=== PATIENT | male | born 1955 | race Caucasian/White ===

== ENCOUNTER 2016-06-05 10:34 | Day surgery (SDC) | payer BC ==
[~2016-06-05] VITALS: Ht 175.3 cm; Wt 95.0 kg
[2016-06-05 10:38] VITALS: BP 167/94; PULSE 77; RESP 17; TEMP 97.9; O2SAT 95
[2016-06-05] MEDS ORDERED: TETANUS/DIPHTHERIA TOXOID ADULT 0.5 ML VIAL IM ONE (11:00)
--- NOTE | 2016-06-05 11:07 | PD ---
HPI Chief Complaint: Fall Time Seen by Provider: 11:06 Travel History International Travel<30 days: No Contact w/Intl Traveler<30days: No Traveled to known affect area: No History of Present Illness HPI 61-year-old male presents to the emergency department for evaluation of fall that occurred just prior to arrival. 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 He states he landed on his head, left side and caught himself with his right wrist. Patient complains of headache, bilateral shoulder pain, right wrist pain. He denies loss of consciousness. He states his tetanus immunization is not up-to-date. He denies any chest pain or abdominal pain. No vomiting. He has been ambulatory since the fall. He states he has no chronic medical problems and takes no prescribed medications. He is not on anticoagulants and has no bleeding disorders. PFSH Past Surgical History Abdominal Surgery: Yes (herniorrhaphy) Social History Alcohol Use: Yes ("few beers per week") Tobacco Use: No Substance Use: No Allergies-Medications (Allergen,Severity, Reaction): Coded Allergies: No Known Allergies (Unverified , 06/05/16) Reported Meds & Prescriptions Reported Meds & Active Scripts Active No Active Prescriptions or Reported Medications Review of Systems Except as stated in HPI: all other systems reviewed are Neg Physical Exam Narrative GENERAL: Well-developed well-nourished male patient, ambulatory. Afebrile. SKIN: Warm and dry. Patient abrasions to the left forehead, left lower eye orbit and left cheek. He also has a superficial abrasion to the left anterior knee. Patient has a 4 cm laceration to the left forehead. HEAD: Normocephalic. EYES: No scleral icterus. No injection or drainage. PERRLA. ENT: Mucosa pink and moist. No erythema or exudates. No uvular edema. No uvular , palatal, or tonsillar deviation. Airway patent. Nasal turbinates appear normal without nasal blood, purulent drainage or septal hematoma. Bilateral tympanic membranes are clear without erythema or perforation. NECK: Supple, trachea midline. No JVD or lymphadenopathy. CARDIOVASCULAR: Regular rate and rhythm without murmurs, gallops, or rubs. Bilateral radial pulses are 2+. Capillary refill less than 2 seconds to the bilateral hands. RESPIRATORY: Breath sounds equal bilaterally. No accessory muscle use. Lungs sounds are clear to auscultation. GASTROINTESTINAL: Abdomen soft, non-tender, nondistended. MUSCULOSKELETAL: No cyanosis, or edema. Patient has tenderness over the right and left shoulders. Patient has Reduced range of motion right shoulder. He also has tenderness over the right dorsal and lateral wrist. No snuffbox tenderness. Full sensation distal right and left upper extremities. No other bony point tenderness. BACK: Nontender without obvious deformity. No CVA tenderness. Data Data Last Documented VS Vital Signs Date Time Temp Pulse Resp B/P Pulse Ox O2 Delivery O2 Flow Rate FiO2 06/05/16 14:40 69 16 122/77 96 Room Air 06/05/16 10:38 97.9 Orders Morphine Inj (Morphine Inj) (06/05/16 11:15) Ct Brain W/O Iv Contrast(Rout) (06/05/16 ) Ct Facial Bones W/O Iv Cont (06/05/16 ) Ct Cerv Spine W/O Contrast (06/05/16 ) Chest, Single Ap (06/05/16 ) Shoulder, Complete (>2vws) (06/05/16 ) Shoulder, Complete (>2vws) (06/05/16 ) Wrist, Complete (Utc2ibs) (06/05/16 ) Apply Cervical Collar (06/05/16 11:00) Tetanus/Diphtheria Tox Adult (Tetanus/Di (06/05/16 11:00) Iv Access Insert/Monitor (06/05/16 11:03) Ondansetron Inj (Zofran Inj) (06/05/16 11:15) Lidocai-Epi 1%-1:100,000 Inj (Xylocaine- (06/05/16 11:15) Splint Or Brace Apply/Monitor (06/05/16 12:38) Oxycodone-Acetamin 5-325 Mg (Percocet (06/05/16 12:45) Fiberglass Sugartong Sp Ad Arm (06/05/16 ) Sling Cradle Arm (06/05/16 ) Collar Glynn (06/05/16 ) Ct Wrist W/O Contrast (06/05/16 ) Diet Npo (06/05/16 Dinner) Basic Metabolic Panel (Bmp) (06/05/16 14:46) Complete Blood Count With Diff (06/05/16 14:46) Prothrombin Time / Inr (Pt) (06/05/16 14:46) Act Partial Throm Time (Ptt) (06/05/16 14:46) Electrocardiogram (06/05/16 ) Admit Order (Ed Use Only) (06/05/16 16:19) Labs Laboratory Tests Test 06/05/16 14:55 White Blood Count 11.6 TH/MM3 Red Blood Count 5.25 MIL/MM3 Hemoglobin 15.5 GM/DL Hematocrit 44.7 % Mean Corpuscular Volume 85.1 FL Mean Corpuscular Hemoglobin 29.5 PG Mean Corpuscular Hemoglobin 34.6 % Concent Red Cell Distribution Width 13.3 % Platelet Count 175 TH/MM3 Mean Platelet Volume 9.4 FL Neutrophils (%) (Auto) 82.0 % Lymphocytes (%) (Auto) 10.2 % Monocytes (%) (Auto) 6.6 % Eosinophils (%) (Auto) 0.7 % Basophils (%) (Auto) 0.5 % Neutrophils # (Auto) 9.5 TH/MM3 Lymphocytes # (Auto) 1.2 TH/MM3 Monocytes # (Auto) 0.8 TH/MM3 Eosinophils # (Auto) 0.1 TH/MM3 Basophils # (Auto) 0.1 TH/MM3 CBC Comment DIFF FINAL Differential Comment Prothrombin Time 11.5 SEC Prothromb Time International 1.0 RATIO Ratio Activated Partial 27.5 SEC Thromboplast Time Sodium Level 140 MEQ/L Potassium Level 4.5 MEQ/L Chloride Level 108 MEQ/L Carbon Dioxide Level 24.6 MEQ/L Anion Gap 7 MEQ/L Blood Urea Nitrogen 13 MG/DL Creatinine 1.12 MG/DL Estimat Glomerular Filtration 67 ML/MIN Rate Random Glucose 98 MG/DL Calcium Level 8.7 MG/DL MDM Medical Decision Making Medical Screen Exam Complete: Yes Emergency Medical Condition: Yes Medical Record Reviewed: Yes Interpretation(s) Last Impressions Wrist X-Ray 06/05/16 0000 Signed Impressions: Service Date/Time: Sunday, June 05, 2016 11:22 - CONCLUSION: Fracture distal radius Jose Abel MD Shoulder X-Ray 06/05/16 0000 Signed Impressions: Service Date/Time: Sunday, June 05, 2016 11:27 - CONCLUSION: No acute bony injury Jose Abel MD Shoulder X-Ray 06/05/16 0000 Signed Impressions: Service Date/Time: Sunday, June 05, 2016 11:37 - CONCLUSION: Negative for fracture or dislocation. Followup in 7-10 days is suggested if symptoms persist. Vinh Velasquez MD FACR Maxillofacial CT 06/05/16 0000 Signed Impressions: Service Date/Time: Sunday, June 05, 2016 11:50 - CONCLUSION: No acute bony injury. Left frontal for head soft tissue swelling and air in soft tissues consistent with laceration abrasion Jose Abel MD Head CT 06/05/16 0000 Signed Impressions: Service Date/Time: Sunday, June 05, 2016 11:50 - CONCLUSION: Normal examination. Jose Abel MD Chest X-Ray 06/05/16 0000 Signed Impressions: Service Date/Time: Sunday, June 05, 2016 11:19 - CONCLUSION: No acute disease. Jose Abel MD Cervical Spine CT 06/05/16 Signed Impressions: Service Date/Time: Sunday, June 05, 2016 11:50 - CONCLUSION: Degenerative changes. No acute bony injury. Jose Abel MD Differential Diagnosis Intracranial abnormality versus closed head injury versus fracture versus contusion versus laceration versus abrasion versus dislocation Narrative Course 61-year-old male presents to the emergency department for evaluation after approximately a 7 foot fall that occurred just prior to arrival. Tetanus immunization is updated. C-collar is applied. CT scan of the brain, facial bones, cervical spine are ordered and pending. X-ray of the right shoulder, left shoulder, chest, right wrist are ordered and pending. Patient gives verbal consent for laceration repair. CT of the brain is normal. CT of the facial bones shows no acute bony injury. CT of the cervical spine shows degenerative changes without acute bony injury. X-ray of the right shoulder shows no acute bony. X-ray of the left shoulder shows no acute bony injury. X-ray of the chest shows no acute. X-ray of the right wrist shows a distal radius fracture. [phone] - orthopedist technical support professional is paged. [phone] - Dr. Varela returned page. CT scan of the wrist. He would like to be called back when CT was resulted. He would like the patient remain nothing by mouth after midnight at this time. CT wrist shows a comminuted T-shaped fracture which is intra-articular extension of the distal radius without significant displacement of the fracture fragments. There is benign well corticated cyst adjacent to the radial tuberosity measuring 10 mm x 5 mm. The carpal bones appear intact. Scapholunate distance is maintained. The ulnar styloid is intact. [phone] - Dr. Varela is paged. [phone] - Dr. Varela returned page it would like to take the patient to the OR today and discharged after the surgery. The patient agrees to this. Procedures Procedure Narrative LACERATION LOCATION: Forehead LENGTH: 4 cm NUMBER OF STITCHES/RODRIGUEZ: 9 simple interrupted sutures REPAIR: The area of the laceration was prepped with Betadine and sterilely draped. The laceration was infiltrated with 1% lidocaine with epinephrine. The wound was copiously irrigated and explored without evidence of foreign body, tendon injury or neurovascular injury. The wound was closed using 5-0 Prolene. This was a single layer repair. A sterile dressing was applied. The patient was advised to keep the dressing clean and dry. Patient tolerated the procedure well. Repair was done by GUSTAVO Lloyd student. Diagnosis Primary Impression: Distal radius fracture, right Qualified Code: S52.571A - Other closed intra-articular fracture of distal end of right radius, initial encounter Additional Impression: Laceration of forehead Qualified Code: S01.81XA - Laceration of forehead, initial encounter Admitting Information Admitting Physician Requests: Observation Scripts No Active Prescriptions or Reported Meds Kelly Moncada Jun 05, 2016 11:06
[2016-06-05] MEDS ORDERED: MORPHINE SULFATE 4 MG/ML INJ IV PUSH ONE ×2 (11:15→19:15)
[2016-06-05] MEDS ORDERED: LIDOCAINE 1%/EPINEPHrine 1:100,000 SOLN 20 ML VIAL INFIL ONE (11:15)
[2016-06-05] MEDS ORDERED: ONDANSETRON HCL 4 MG/2 ML VIAL IV PUSH ONE ×2 (11:15→12:00)
--- NOTE | 2016-06-05 11:56 | RADRPT ---
EXAM DATE/TIME: 06/05/2016 11:27 [facility] COMPARISON: No previous studies available for comparison. INDICATIONS : Fell off truck today, bilateral shoulder pain MEDICAL HISTORY : None. SURGICAL HISTORY : None. ENCOUNTER: Initial ACUITY: 1 day PAIN SCORE: 8/10 LOCATION: Right shoulder FINDINGS: Multiple view examination of the right shoulder demonstrates no evidence of fracture or dislocation. The glenohumeral and acromioclavicular joints are maintained. There is normal range of motion betwe en internal and external rotation. Bony mineralization is normal. Mild degenerative change of the a. c. joint CONCLUSION: No acute bony injury Jose Abel MD on June 05, 2016 at 11:54 Board Certified Radiologist. This report was verified electronically.
--- NOTE | 2016-06-05 11:57 | RADRPT ---
EXAM DATE/TIME: 06/05/2016 11:22 [facility] COMPARISON: No previous studies available for comparison. INDICATIONS : Fell off truck today, pain 360 degrees around right wrist MEDICAL HISTORY : None. SURGICAL HISTORY : None. ENCOUNTER: Initial ACUITY: 1 day PAIN SCORE: 5/10 LOCATION: Right wrist FINDINGS: Fracture of distal radius is appreciated in part transverse 1 cm proximal epiphysis with a vertical c omponent into the articular surface. Ulna is intact with no dislocation. CONCLUSION: Fracture distal radius Jose Abel MD on June 05, 2016 at 11:55 Board Certified Radiologist. This report was verified electronically.
--- NOTE | 2016-06-05 11:58 | RADRPT ---
EXAM DATE/TIME: 06/05/2016 11:37 [facility] COMPARISON: No previous studies available for comparison. INDICATIONS : Fell off truck today, bilateral shoulder pain MEDICAL HISTORY : None. SURGICAL HISTORY : None. ENCOUNTER: Initial ACUITY: 1 day PAIN SCORE: 8/10 LOCATION: Left shoulder FINDINGS: Multiple view examination of the left shoulder demonstrates no evidence of fracture or dislocation. The glenohumeral and acromioclavicular joints are maintained. There is normal range of motion betwee n internal and external rotation. Bony mineralization is normal. CONCLUSION: Negative for fracture or dislocation. Followup in 7-10 days is suggested if symptoms persist. Vinh Velasquez MD FACR on June 05, 2016 at 11:56 Board Certified Radiologist. This report was verified electronically.
--- NOTE | 2016-06-05 11:58 | RADRPT ---
EXAM DATE/TIME: 06/05/2016 11:19 [facility] COMPARISON: CHEST SINGLE AP, January 22, 2015, 15:46. INDICATIONS : Fell off truck today, pain in chest, both shoulders and right wrist MEDICAL HISTORY : None. SURGICAL HISTORY : None. ENCOUNTER: Initial ACUITY: 1 day PAIN SCORE: 5/10 LOCATION: Left chest FINDINGS: A single view of the chest demonstrates the lungs to be symmetrically aerated without evidence of mas s, infiltrate or effusion. The cardiomediastinal contours are unremarkable. Osseous structures are intact. CONCLUSION: No acute disease. Jose Abel MD on June 05, 2016 at 11:56 Board Certified Radiologist. This report was verified electronically.
[2016-06-05] MEDS ORDERED: PROPOFOL 200 MG/20 ML AMP IV ONE (12:00)
[2016-06-05] MEDS ORDERED: LACTATED RINGER'S 1000 ML INJ 1,000 ML IV ONE (12:00)
--- NOTE | 2016-06-05 12:12 | RADRPT ---
EXAM DATE/TIME: 06/05/2016 11:50 [facility] COMPARISON: No previous studies available for comparison. INDICATIONS : Fall onto pavement today, abrasion to left side of head, cephalgia. RADIATION DOSE: 53.25 CTDIvol (mGy) MEDICAL HISTORY : None SURGICAL HISTORY : None. ENCOUNTER: Initial ACUITY: 1 day PAIN SCALE: 7/10 LOCATION: Bilateral head TECHNIQUE: Multiple contiguous axial images were obtained of the head. Using automated exposure control and adj ustment of the mA and/or kV according to patient size, radiation dose was kept as low as reasonably a chievable to obtain optimal diagnostic quality images. FINDINGS: CEREBRUM: The ventricles are normal for age. No evidence of midline shift, mass lesion, hemorrhage or acute in farction. No extra-axial fluid collections are seen. POSTERIOR FOSSA: The cerebellum and brainstem are intact. The 4th ventricle is midline. The cerebellopontine angle i s unremarkable. EXTRACRANIAL: The visualized portion of the orbits is intact. SKULL: The calvaria is intact. No evidence of skull fracture. CONCLUSION: Normal examination. Jose Abel MD on June 05, 2016 at 12:10 Board Certified Radiologist. This report was verified electronically.
--- NOTE | 2016-06-05 12:17 | RADRPT ---
EXAM DATE/TIME: 06/05/2016 11:50 [facility] COMPARISON: No previous studies available for comparison. INDICATIONS : Fall onto pavement today, abrasion to left side of head, cephalgia RADIATION DOSE: 40.21 CTDIvol (mGy) MEDICAL HISTORY : None SURGICAL HISTORY : None. ENCOUNTER: Initial ACUITY: 1 day PAIN SCALE: 2/10 LOCATION: Left neck TECHNIQUE: Volumetric scanning of the cervical spine was performed. Multiplanar reconstructions in the sagittal, coronal and oblique axial planes were performed. Using automated exposure control and adjustment o f the mA and/or kV according to patient size, radiation dose was kept as low as reasonably achievable to obtain optimal diagnostic quality images. FINDINGS: Bony structures are intact with no evidence of fracture, compression, subluxation, or destructive adryan nge. Odontoid is in normal relationship the arch of C1 with open and patent foramen and normal upper thoracic spine. Degenerative disc disease is appreciated C3-C7 with posterior osteophyte disc complex es at C5-6 and C6-7 mildly simply encroaching upon the canal and the inferior neural foramina. CONCLUSION: Degenerative changes. No acute bony injury. Jose Abel MD on June 05, 2016 at 12:13 Board Certified Radiologist. This report was verified electronically.
--- NOTE | 2016-06-05 12:19 | RADRPT ---
EXAM DATE/TIME: 06/05/2016 11:50 [facility] COMPARISON: No previous studies available for comparison. INDICATIONS : Fall onto pavement today, abrasion to left side of head, cephalgia. RADIATION DOSE: 56.76 CTDIvol (mGy) MEDICAL HISTORY : None SURGICAL HISTORY : None. ENCOUNTER: Initial ACUITY: 1 day PAIN SCORE: 7/10 LOCATION: Left head TECHNIQUE: Volumetric scanning of the facial bones was performed. Using automated exposure control and adjustme nt of the mA and/or kV according to patient size, radiation dose was kept as low as reasonably achiev able to obtain optimal diagnostic quality images. FINDINGS: ORBITS: The orbital and infraorbital osseous structures are intact. The retroconal structures have a normal configuration. No radiopaque foreign bodies are seen. NASAL BONE: The nasal bone and maxillary spine are intact ZYGOMATIC ARCHES: Symmetric without evidence of fracture. SINUSES: The maxillary, ethmoid and frontal sinuses are intact. No air-fluid levels seen. NASAL CAVITY: The nasal septum is mildly deviated to the right. The lacrimal ducts are intact. SOFT TISSUES: No radiopaque foreign bodies seen. Mild soft tissue swelling in the left frontal for head region with small amount of air in soft tissues consistent with laceration abrasion INTRACRANIAL: No intracranial air seen. CRIBIFORM PLATE: Grossly intact. CONCLUSION: No acute bony injury. Left frontal for head soft tissue swelling and air in soft tissues consistent w ith laceration abrasion Jose Abel MD on June 05, 2016 at 12:16 Board Certified Radiologist. This report was verified electronically.
--- NOTE | 2016-06-05 12:44 | PD ---
Data Data Last Documented VS Vital Signs Date Time Temp Pulse Resp B/P Pulse Ox O2 Delivery O2 Flow Rate FiO2 06/05/16 11:00 18 Room Air 06/05/16 10:38 97.9 77 167/94 95 Orders Morphine Inj (Morphine Inj) (06/05/16 11:15) Ct Brain W/O Iv Contrast(Rout) (06/05/16 ) Ct Facial Bones W/O Iv Cont (06/05/16 ) Ct Cerv Spine W/O Contrast (06/05/16 ) Chest, Single Ap (06/05/16 ) Shoulder, Complete (>2vws) (06/05/16 ) Shoulder, Complete (>2vws) (06/05/16 ) Wrist, Complete ([id number]) (06/05/16 ) Apply Cervical Collar (06/05/16 11:00) Tetanus/Diphtheria Tox Adult (Tetanus/Di (06/05/16 11:00) Iv Access Insert/Monitor (06/05/16 11:03) Ondansetron Inj (Zofran Inj) (06/05/16 11:15) Lidocai-Epi 1%-1:100,000 Inj (Xylocaine- (06/05/16 11:15) Splint Or Brace Apply/Monitor (06/05/16 12:38) MDM Supervised Visit with JENNIFER: Yes Narrative Course I, Dr. Hubbard, have reviewed the advance practice practioner's documentation and am in agreement, met with the patient face to face, made the diagnosis, and the medical decision making was done by me. 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 Hit the left side of his head and right wrist. No LOC. Patient notes a mild headache, right wrist pain and bilateral shoulder pain from bracing himself. No neck or back pain. Exam shows a left periorbital ecchymosis, laceration to the left forehead/eyebrow. Patient has swelling of the distal wrist. Otherwise his exam is unremarkable with normal neuro exam, no neck or back pain. Differential includes closed head injury, skull fracture, ICH, shoulder fracture, dislocation, clavicular fracture, wrist fracture, facial bone fracture. Thankfully imaging of his head , face, neck were unremarkable. Bilateral shoulder x-rays were negative. His right wrist x-ray does show a distal radius fracture with intra-articular involvement. Patient was placed in sugar tong splint and orthopedic surgery will be consulted for further management for hopeful disposition home. Scripts No Active Prescriptions or Reported Meds Neela Hubbard MD Jun 05, 2016 12:44
[2016-06-05] MEDS ORDERED: oxyCODONE/ACETAMINOPHEN 5 MG/325 MG TAB PO ONE (12:45)
[2016-06-05 14:40] VITALS: BP 122/77; PULSE 69; RESP 16; O2SAT 96
[2016-06-05 15:13] LABS: AUTOMATED NEUTROPHIL # 9.5 TH/MM3 (1.8-7.7); BASOPHIL # 0.1 TH/MM3 (0-0.2); BASOPHIL % 0.5 % (0.0-2.0); EOSINOPHIL # 0.1 TH/MM3 (0-0.4); EOSINOPHIL % 0.7 % (0.0-4.0); HEMATOCRIT 44.7 % (39.0-51.0); HEMO FLAGS DIFF FINAL; LYMPH % 10.2 % (9.0-44.0); LYMPHOCYTE # 1.2 TH/MM3 (1.0-4.8); MEAN CELL VOLUME 85.1 FL (80.0-100.0); MEAN CORPUSCULAR HEMOGLOBIN 29.5 PG (27.0-34.0); MEAN CORPUSCULAR HGB CONC 34.6 % (32.0-36.0); MONO % 6.6 % (0.0-8.0); PLATELET COUNT 175 TH/MM3 (150-450); RED BLOOD COUNT 5.25 MIL/MM3 (4.50-5.90); RED CELL DISTRIBUTION WIDTH 13.3 % (11.6-17.2); WHITE BLOOD COUNT 11.6 TH/MM3 (4.0-11.0)
[2016-06-05 15:19] LABS: APTT (PATIENT) 27.5 SEC (24.3-30.1); PROTHROMBIN TIME - PATIENT 11.5 SEC (9.8-11.6)
[2016-06-05 15:29] LABS: BICARBONATE 24.6 MEQ/L (21.0-32.0); POTASSIUM 4.5 MEQ/L (3.5-5.1)
--- NOTE | 2016-06-05 15:35 | RADRPT ---
EXAM DATE/TIME: 06/05/2016 15:06 [facility] COMPARISON: WRIST RIGHT COMPLETE ([id number]), June 05, 2016, 11:22. INDICATIONS : Trauma;wrist pain, fall six feet. RADIATION DOSE: 12.10 CTDIvol (mGy) MEDICAL HISTORY : None SURGICAL HISTORY : None. ENCOUNTER: Initial ACUITY: 1 day PAIN SCALE: 5/10 LOCATION: Right wrist. TECHNIQUE: Volumetric scanning of the wrist was performed. Using automated exposure control and adjustment of t he mA and/or kV according to patient size, radiation dose was kept as low as reasonably achievable to obtain optimal diagnostic quality images. FINDINGS: There is a comminuted T-shaped fracture which is intra-articular extension of the distal radius witho ut significant displacement of the fracture fragments. There is benign well corticated cyst adjacent to the radial tuberosity measuring 10 mm x 5 mm. The carpal bones appear intact. Scapholunate distanc e is maintained. The ulnar styloid is intact. CONCLUSION: 1. Comminuted intra-articular fracture distal radius. Zechariah Gomez MD on June 05, 2016 at 15:31 Board Certified Radiologist. This report was verified electronically.
[2016-06-05] MEDS ORDERED: ceFAZolin 2 GM PREMIX 50 ML IV SCH (17:30)
[2016-06-05] MEDS ORDERED: CHLORHEXIDINE GLUCONATE 4% SOLN 120 ML BTL TOPICAL SCH (17:30)
[2016-06-05 19:36] VITALS: BP 135/81; PULSE 65; RESP 16; O2SAT 98
[2016-06-05] MEDS ORDERED: GENTAMICIN SULFATE 80 MG/2 ML VIAL ONE (20:33)
[2016-06-05] MEDS ORDERED: fentaNYL CITRATE 250 MCG/5 ML AMP ONE ×2 (20:47→22:48)
[2016-06-05] MEDS ORDERED: MIDAZOLAM HCL 2 MG/2 ML VIAL ONE (20:47)
[2016-06-05] MEDS ORDERED: BUPIVACAINE/EPINEPHRINE 0.25% PF 30 ML VIAL ONE (22:05)
[2016-06-05] MEDS ORDERED: DO NOT ADM ANY ANTICOAGULANT DRUGS XX PRN (22:12)
[2016-06-05 22:40] VITALS: TEMP 98.5
[2016-06-05] MEDS ORDERED: MEPERIDINE HCL 25 MG/ML VIAL ONE (22:53)
--- NOTE | 2016-06-05 22:57 | RADRPT ---
EXAM DATE/TIME: 06/05/2016 21:27 [facility] COMPARISON: WRIST RIGHT COMPLETE ([id number]), June 05, 2016, 11:22. INDICATIONS : ORIF right wrist. MEDICAL HISTORY : None. SURGICAL HISTORY : None. ENCOUNTER: Initial ACUITY: 1 day PAIN SCORE: Non-responsive. LOCATION: Right wrist FINDINGS: Multiple spot films reveal plate and screw fixation of an intra-articular fracture of the distal radi us. No dislocation. No other fractures are seen. CONCLUSION: 1. Plate and screw fixation of distal radius fracture. Gregg You MD on June 05, 2016 at 22:54 Board Certified Radiologist. This report was verified electronically.
[2016-06-05 23:45] VITALS: BP 135/8; PULSE 63; RESP 16; O2SAT 98
[2016-06-05] MEDS ORDERED: PERC5TAB12 PO (23:47)
--- NOTE | 2016-06-06 00:11 | PD.OP ---
Operative Report Date of Surgery: Jun 05, 2016 Preoperative Diagnosis: (1) Distal radius fracture, right Postoperative Diagnosis: (1) Distal radius fracture, right Procedure: Open Reduction and Internal Fixation Right Distal Radius Fracture Anesthesia: General Surgeon: Dr. Alcides Varela Mold Closer Helper(s): KISHORE Harris Operation and Findings: See Dictation Jayden Cobos Jun 06, 2016 00:11
--- NOTE | 2016-06-06 05:36 | MH ---
cc: HAMILTON VASQUEZ M.D. DATE OF ADMISSION: 06/05/2016 ADMISSION DIAGNOSIS Intraarticular right distal radius displaced fracture. 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 He fell while climbing down about 6 or 7 feet. He had blocked his fall with his right upper extremity, had immediate pain in the wrist and had sustained a significant abrasion and laceration to his left forehead/eyebrow. He was brought to [facility] and underwent suture repair of his facial laceration. Workup revealed intraarticular fracture on the right wrist. Consultation was requested with the undersigned. Images reviewed. Recommended CT scan. Other x-rays included CT of the cervical spine, chest x-ray, head CT, maxillofacial CT, shoulder x-rays. Other than degenerative changes, the intraarticular wrist fracture was what was identified. PAST MEDICAL HISTORY 1. Significant for hernia repair. 2. He states he has some borderline blood pressure issues but he has never taken any medication for this. ALLERGIES He has no known drug allergies. MEDICATIONS He has no regular medications. SOCIAL HISTORY Occasional alcohol use. Denies tobacco use and substance use. PHYSICAL EXAMINATION GENERAL: The patient is alert, oriented, appropriate. HEENT: Abrasion and sutures over left eyebrow and forehead. NECK: Good motion of the neck, nontender. CHEST: Nontender. LUNGS: Clear to auscultation bilaterally. HEART: Regular rate and rhythm without murmur. ABDOMEN: Benign. MUSCULOSKELETAL: Some tenderness about his shoulder but good motion. Left upper extremity benign. Right upper extremity splint in place, calloused fingers. Sensation intact to light touch. Able to flexion and extend/ Lower extremities with good range of motion of hips, knees and ankles. Pulses intact. IMAGING STUDIES Images are reviewed which show intraarticular fracture of the distal radius with 4-mm diastasis and slight step-off. ASSESSMENT Intraarticular distal radius fracture. MEDICAL DECISION-MAKING His condition was discussed. The options of treatment were discussed. I explained to him that the fractures in his wrist are not grossly displaced and if he were in his 70s and 80s, probably nonoperative treatment would be most appropriate. However, being that he is active and still works and there is significant intraarticular displacement, the recommendation is right wrist open reduction and internal fixation using a plate and screw technique. The risks and benefits of surgical intervention including the risk of infection, nerve damage, blood vessel damage, failure of internal fixation, post-traumatic arthritis, need for revision surgery, anesthetic complications, medical complications and unforeseen possible complications were all discussed. All of his questions were answered. A detailed, informed consent was obtained. MD ZACH Rosales/CROW /5:29 PM /5:27 AM
--- NOTE | 2016-06-06 13:47 | EKG ---
Date Performed: 06/05/2016 Time Performed: 16:59:37 PTAGE: 61 years EKG: Sinus rhythm NORMAL ECG Compared to prior tracing no significant change PREVIOUS TRACING : 01/22/2015 15.05 DOCTOR: Marie Adan Interpretating Date/Time 06/06/2016 13:45:19
--- NOTE | 2016-06-09 11:13 | MP ---
cc: HAMILTON VASQUEZ M.D. DATE OF SURGERY 06/06/2016 PREOPERATIVE DIAGNOSIS Right distal radius comminuted intra-articular fracture. POSTOPERATIVE DIAGNOSIS Right distal radius comminuted intra-articular fracture. PROCEDURE Right distal radius intra-articular comminuted fracture open reduction internal fixation using [employer] specialty volar locking plate ANESTHESIA General SURGEON Hamilton Vasquez MD [facility]IL[facility] SURGEON KISHORE Harris ESTIMATED BLOOD LOSS 20 cc DRAINS None SPECIMEN None COMPLICATIONS None known. INDICATION Alexander Dave is a 61-year-old male who was working on a fire truck pumping unit and in the process of coming down, he fell about six or seven feet sustaining a significant facial laceration and broke his fall by his outstretched right upper extremity and sustained a significant intra-articular displaced fracture best seen on CT scan where I measured a 4 mm diastases of the fracture fragment as well as comminution of the fracture fragment and therefore recommended surgical intervention for this problem. We did discuss the alternatives of treatment. We talked about the risk of infection, nerve damage, blood vessel damage, anesthetic complications, medical complication, possible failure of the internal fixation, possible post-traumatic arthritis, the possibility of unrecognized other injuries, the possibility of unforeseen possible complications. All of his questions were answered and he wished to press on with surgery. Informed consent was obtained. The first aid teacher Jayden Cobos is an advanced registered nurse practitioner who specializes in orthopedic surgery. His skill set was medically necessary for the performance of the operation. He assisted by retracting vital structures, helping with complex instrumentation, helping with fracture reduction and his assistance was medically necessary for the performance of the operation. PROCEDURE The patient brought into the operating room. He was placed under general anesthetic. The right upper extremity was draped and prepped in the usual sterile fashion, IV antibiotics were given. Time-out was completed. The limb was exsanguinated, tourniquet inflated. A volar approach of Joaquín was used. We traversed the quadratus pronator which was about twice as thick as the average patient. We did subperiosteal dissection at the fracture site. There were multiple comminuted fracture lines noted. Most of the reduction was directly pressing on the fracture and sliding it back into position and we used traction while this was being performed and then we visualize AP and lateral plane and markedly improved the overall alignment. We chose our fracture plate and then fine-tuned and manipulated the fracture further and pushed the plate into position and held this and provisionally fixated it with K-wires and then confirmed the overall alignment and then proceeded with placement of screws. We placed our compression screw first to compress the plate further to the fracture site and when the alignment was in place, we placed our distal drill bit through the guide and confirmed the overall alignment and proceeded with placement of all the distal locking screws and then the most proximal locking screws and obtained final copy AP lateral oblique view and several other views. At this point, we let the tourniquet down. Meticulous hemostasis was obtained. We irrigated out with copious amounts of irrigation. We proceeded to close delicately the pronator quadratus and then proceeded to close in layers with absorbable sutures and then nylon on the skin. Xeroform applied. Sterile dressing applied. The patient was awoken and returned to the recovery room in stable condition. MD ZACH Rosales/DARY /12:32 AM /11:00 AM
== END 2016-06-06 00:30 | disposition home or self-care (01) ==
LOC: NEPA 10:34 → HOR 16:28 → HSDI 19:33 → HOR 06-06 00:30
PROVIDERS: ATTEND Orthopaedic Surgery Sports Medicine
DX: S52.571A Other intraarticular fracture of lower end of right radius, initial encounter for closed fracture (principal); S01.81XA Laceration without foreign body of other part of head, initial encounter; M25.511 Pain in right shoulder; M25.512 Pain in left shoulder; W19.XXXA Unspecified fall, initial encounter; W17.89XA Other fall from one level to another, initial encounter; Y93.89 Activity, other specified; Y99.0 Civilian activity done for income or pay
CPT/HCPCS: 01830; 12013; 25607; 70450; 70486; 71010; 72125; 73030; 73110; 73200; 76000; 80048; 85025; 85610; 85730; 90471; 90714; 93005; 96374; 96375; 96376; 99284; C1713; J1580; J2175; J2250; J2270; J2405; J3010; J7120; L0150